=== PATIENT | male | born 1975 | race Caucasian/White ===

== ENCOUNTER 2023-01-13 15:49 | Emergency (ER) | payer BC, OTHER ==
[2023-01-13] MEDS ORDERED: Sodium Chloride 0.9% 10 ML Syringe FLUSH PRN (16:10)
[2023-01-13] MEDS ORDERED: Sodium Chloride 0.9% 1,000 ML IV ONE (16:10)
[2023-01-13] MEDS ORDERED: Ondansetron 4 MG/2 ML SDV IV ONE (16:10)
[2023-01-13] MEDS ORDERED: HYDROmorphone 1 MG/ML Syringe IVPUSH ONE (16:10)
[2023-01-13] MEDS ORDERED: Piperacillin/Tazobactam 4.5 GM in Sodium Chloride 0.9% 100 ML IV ONE (17:31)
== END 2023-01-13 18:35 | disposition home or self-care (01) ==
LOC: DL.ED 15:49 → MERGE 15:49 → DL.ED 18:35
DX: K57.32 Diverticulitis of large intestine without perforation or abscess without bleeding (principal)
CPT/HCPCS: 36415; 74176; 80053; 81001; 83605; 85025; 86140; 96361; 96365; 96375; 99284; 99284-25; J1170; J2405; J2543; J3490; J7030